=== PATIENT | male | born 1990 | race Caucasian/White ===

== ENCOUNTER 2019-01-21 07:48 | Outpatient (CLI) | payer OTHER | END 2019-01-21 14:25 | disposition home or self-care (01) | LOC: SONOGRAMA 07:48 | DX: E03.8 Other specified hypothyroidism (principal); E55.9 Vitamin D deficiency, unspecified; F41.8 Other specified anxiety disorders; F40.8 Other phobic anxiety disorders; N45.3 Epididymo-orchitis ==

== ENCOUNTER 2023-04-07 11:42 | Emergency (ER) | payer OTHER ==
[~2023-04-07] VITALS: Ht 180.3 cm; Wt 77.1 kg
[2023-04-07 13:36] LABS: HEMATOCRIT 44.4 % (39.0-48.0); HEMOGLOBIN 14.5 g/dL (13-16.00); MEAN CELL VOLUME 94.3 fL (80.0-100.00); MEAN CORPUSCULAR HEMOGLOBIN 30.8 pg (27.00-32.0); MEAN CORPUSCULAR HGB CONC 32.7 g/dl (32.0-36.0); PLATELET COUNT 230 K/uL (150-450); RED BLOOD COUNT 4.71 M/uL (4.00-6.00); RED CELL DISTRIBUTION WIDTH 13.9 % (11.5-14.5)
[2023-04-07 14:08] LABS: ALBUMIN 4.6 gm/dL (3.4-5.0); BILIRUBIN TOTAL 0.69 mg/dL (0.3-1.2); CALCIUM 9.7 mg/dL (8.5-10.1); CREATININE SERUM 1.18 mg/dL (0.70-1.30); GFR 70.25; POTASSIUM 3.78 mEq/L (3.5-5.1); TOTAL PROTEIN 8.6 gm/dL (6.4-8.2)
[2023-04-07] MEDS ORDERED: IBU600 MG PO ×2 (14:48→15:31)
[2023-04-07] MEDS ORDERED: TAMS0.4C PO (14:48)
== END 2023-04-07 16:16 | disposition home or self-care (01) ==
LOC: ER 11:42
PROVIDERS: General Practice
DX: N23 Unspecified renal colic (principal)

== ENCOUNTER 2025-01-05 09:38 | Outpatient (CLI) | payer OTHER ==
[~2025-01-05 09:38] MED LIST: IBU600 MG PO; TAMS0.4C PO
== END 2025-01-05 09:48 | disposition home or self-care (01) ==
LOC: SONOGRAMA 09:38
DX: R10.30 Lower abdominal pain, unspecified (principal); N44.2 Benign cyst of testis